=== PATIENT | male | born 1980 | race Hispanic/Latino ===

== ENCOUNTER 2023-12-20 20:38 | Observation (INO) | payer SELFPAY ==
[2023-12-20] MEDS ORDERED: ASPIRIN 81 MG CHEWABLE TABLET ONE (20:53)
[2023-12-20 20:58] LABS: Absolute Eosinophils 0.7 K/uL (0-0.5); Absolute Lymphocytes (CBC) 2.6 K/uL (0.7-4.9); Absolute Monocytes 0.8 K/uL (0.1-1.3); Absolute Neutrophil 3.6 K/uL (1.8-8.0); Basophils % 0.4 % (0-1.3); Eosinophils % 9.2 % (0-4.4); Hematocrit 45.4 % (39.6-49.0); Hemoglobin 15.5 g/dL (13.6-17.9); Lymphocytes % 34.3 % (15.3-44.8); MCH 31.9 pg (27.0-35.0); MCHC 34.1 g/dL (32.0-36.0); MCV 93.5 fL (80-100); Monocytes % 9.9 % (3.3-12.3); Neutrophils % 46.2 % (41.7-73.7); Nucleated Red Blood Cells % 0.1 % (0-0); Platelets 232 thou/uL (152-406); RBC Red Blood Cell Count 4.86 M/uL (4.33-5.43); Red Cell Distribution Width 13.1 % (12.1-15.2)
[2023-12-20 21:11] LABS: D-Dimer < 215 FEUng/mL (<500); PT Prothrombin Time 11.5 SECONDS (9.5-12.5); Protime INR 1.05
[2023-12-20 21:21] LABS: Anion Gap 9.7 mEq/L (5.0-15.0); BUN Blood Urea Nitrogen 18 mg/dL (7-18); Bicarbonate 28 mEq/L (21-32); Glomerular Filtration Rate 65 ml/min (=/>90); Glucose Level 140 mg/dL (74-106); Potassium 3.7 mEq/L (3.5-5.1); Sodium Level 139 mEq/L (136-145)
[2023-12-20 21:22] LABS: ALT/SGPT 28 U/L (16-61); AST/SGOT 16 U/L (15-37); Albumin 3.9 g/dL (3.4-5.0); Albumin/Globulin Ratio 1.1 (1.1-1.8); Alkaline Phosphatase 83 U/L (45-117); Bilirubin Direct 0.2 mg/dL (0-0.2); Bilirubin Indirect, Calculated 0.8 mg/dL (0.2-0.8); Globulin 3.6 g/dL (2.3-3.5); Protein, Total 7.5 g/dL (6.4-8.2)
[2023-12-20 21:24] LABS: NT PRO-BNP < 5 pg/mL (<125); Troponin High Sensitivity < 3.0 pg/mL (<58.9)
--- NOTE | 2023-12-20 22:10 | RAD REPORT ---
EXAM DESCRIPTION: RAD - Chest Single View - 12/20/2023 10:03 pm CLINICAL HISTORY: CHEST PAIN Chest pain. COMPARISON: CHEST SINGLE VIEW dated 02/14/2015; CHEST PA AND LAT 2 VIEW dated 08/22/2012 FINDINGS: Portable technique limits examination quality. The lungs are grossly clear. The heart is normal in size. No displaced fractures. IMPRESSION: No acute intrathoracic process suspected.
--- NOTE | 2023-12-20 23:30 | ER ---
Nurse's Notes [facility] Name: Terry Ely Age: 43 yrs Sex: Male : 1980 Arrival Date: 12/20/2023 Time: 20:38 Bed 6 Private MD: Diagnosis: Chest pain, unspecified Presentation: 12/19 20:48 Chief complaint: Patient states: Pt c/o sudden onset of non-reproducible left side tl4 chest pressure that radiates into left arm since yesterday. Pt has history of AL within past 2-3 years. Pt also c/o nausea and SOB. Coronavirus screen: At this time, the client does not indicate any symptoms associated with coronavirus-19. Ebola Screen: No symptoms or risks identified at this time. Initial Sepsis Screen: Does the patient meet any 2 criteria? No. Patient's initial sepsis screen is negative. Does the patient have a suspected source of infection? No. Patient's initial sepsis screen is negative. Risk Assessment: Do you want to hurt yourself or someone else? Patient reports no desire to harm self or others. Onset of symptoms was December 19, 2023. 20:48 Method Of Arrival: Ambulatory tl4 20:48 Acuity: CHICHO 2 tl4 Triage Assessment: 20:51 General: Appears uncomfortable, Behavior is calm, cooperative. Pain: Complains of pain tl4 in chest. EENT: No signs and/or symptoms were reported regarding the EENT system. Neuro: Level of Consciousness is awake, alert, obeys commands, Oriented to person, place, time, situation. Cardiovascular: Reports chest pain, nausea, shortness of breath, Capillary refill < 3 seconds Patient's skin is warm and dry. Respiratory: Airway is patent Respiratory effort is even, unlabored, Respiratory pattern is regular, symmetrical. GI: No signs and/or symptoms were reported involving the gastrointestinal system. : No signs and/or symptoms were reported regarding the genitourinary system. Derm: No signs and/or symptoms reported regarding the dermatologic system. Historical: - Allergies: 20:50 No Known Allergies; tl4 - Home Meds: 20:50 None [Active]; tl4 - PMHx: 20:50 Myocardial infarction; tl4 - PSHx: 20:50 None; tl4 - Immunization history:: Adult Immunizations unknown. - Infectious Disease History:: Denies. - Social history:: Smoking status: Patient denies any tobacco usage or history of. Screenin:54 [facility] ED Fall Risk Assessment (Adult) History of falling in the last 3 months, km8 including since admission No falls in past 3 months (0 pts) Confusion or Disorientation No (0 pts) Intoxicated or Sedated No (0 pts) Impaired Gait No (0 pts) Mobility Assist Device Used No (0 pt) Altered Elimination No (0 pt) Score/Fall Risk Level 0 - 2 = Low Risk Oriented to surroundings, Maintained a safe environment, Educated pt \T\ family on fall prevention, incl call for assistance when getting out of bed, Assessed \T\ reinforced patient's understanding of fall precautions. Abuse screen: Denies threats or abuse. Denies injuries from another. Nutritional screening: No deficits noted. Tuberculosis screening: No symptoms or risk factors identified. Assessment: 20:54 General: Appears in no apparent distress. Behavior is calm, cooperative, appropriate km8 for age. Pain: Complains of pain in anterior aspect of left upper chest Pain radiates to left arm Pain currently is 8 out of 10 on a pain scale. Quality of pain is described as aching, sharp, Pain began 1 day ago. Is continuous. Neuro: Level of Consciousness is awake, alert, obeys commands, Oriented to person, place, time, situation. Cardiovascular: Reports chest pain, Denies shortness of breath, Patient's skin is warm and dry. Rhythm is sinus rhythm Chest pain is described as mild, quality is sharp, is located in left anterior chest wall radiates to left arm(s) began 1 day ago episodes are continuous is aggravated by movement. Respiratory: Airway is patent Respiratory effort is even, unlabored, Respiratory pattern is regular, symmetrical. GI: No signs and/or symptoms were reported involving the gastrointestinal system. : No signs and/or symptoms were reported regarding the genitourinary system. EENT: No signs and/or symptoms were reported regarding the EENT system. Derm: No signs and/or symptoms reported regarding the dermatologic system. Skin is intact, is healthy with good turgor, Skin is dry, Skin is pink, warm \T\ dry. normal, Skin temperature is warm. Musculoskeletal: No signs and/or symptoms reported regarding the musculoskeletal system. Range of motion: intact in all extremities. 22:10 Reassessment: Patient appears in no apparent distress at this time. No changes from km8 previously documented assessment. Patient and/or family updated on plan of care and expected duration. Pain level reassessed. Patient is alert, oriented x 3, equal unlabored respirations, skin warm/dry/pink. 23:10 Reassessment: Patient appears in no apparent distress at this time. No changes from km8 previously documented assessment. Patient and/or family updated on plan of care and expected duration. Pain level reassessed. Patient is alert, oriented x 3, equal unlabored respirations, skin warm/dry/pink. 12/20 00:06 Reassessment: Patient appears in no apparent distress at this time. No changes from km8 previously documented assessment. Patient and/or family updated on plan of care and expected duration. Pain level reassessed. Patient is alert, oriented x 3, equal unlabored respirations, skin warm/dry/pink. report faxed to 2nd floor. Vital Signs: 12/19 20:48 BP 161 / 96; Pulse 93; Resp 22; Temp 98.5(O); Pulse Ox 100% on R/A; Weight 76.11 kg; tl4 Height 5 ft. 4 in. ; Pain 8/10; 21:15 BP 140 / 98; Pulse 90; Resp 16; Pulse Ox 97% on R/A; km8 22:00 BP 126 / 90; Pulse 83; Resp 18; Pulse Ox 96% on R/A; km8 23:00 BP 125 / 93; Pulse 79; Resp 16; Pulse Ox 98% on R/A; km8 23:30 BP 135 / 97; Pulse 83; Resp 16; Pulse Ox 99% on R/A; km8 20:48 Body Mass Index 28.80 (76.11 kg, 162.56 cm) tl4 20:48 Pain Scale: Adult tl4 [place] Coma Score: 20:54 Eye Response: spontaneous(4). Motor Response: obeys commands(6). Verbal Response: km8 oriented(5). Total: 15. ED Course: 20:40 Patient arrived in ED. ra3 20:42 [facility] Ortega [facility]C [facility] kb 20:42 Dwight Bowens MD is Attending Physician. kb 20:44 Gracie Guillen, RN is Primary Nurse. km8 20:50 Triage completed. tl4 20:51 Basic Metabolic Panel Sent. 8 20:51 CBC with Diff Sent. 8 20:51 D-Dimer Sent. 8 20:51 LFT's Sent. 8 20:51 Magnesium Sent. 8 20:51 NT PRO-BNP Sent. 8 20:51 PT-INR Sent. 8 20:51 Troponin HS Sent. 8 20:51 Initial lab(s) drawn, by me, sent to lab. EKG done, by ED staff, reviewed by Johanna MONTIEL. Inserted saline lock: 20 gauge in right antecubital area, using aseptic technique. Blood collected. 20:51 Arm band placed on right wrist. tl4 20:54 O2 via room air. km8 20:54 Patient has correct armband on for positive identification. Placed in gown. Bed in low km8 position. Call light in reach. Side rails up X2. monitor and storage bin tender on. Pulse ox on. NIBP on. Warm blanket given. 22:05 XRAY Chest (1 view) In Process Unspecified. EDMS 23:05 Troponin High Sensitivity Sent. km8 23:29 Prince Yusuf MD is Hospitalizing Provider. kb 12/20 00:06 No provider procedures requiring assistance completed. km8 00:06 Patient admitted, IV remains in place. km8 00:06 Provided Education on: admission process. km8 Administered Medications: 12/19 20:54 Drug: Aspirin PO Chewable Tablet 324 mg PO once; 81 mg tablets x 4 Route: PO; km8 23:05 Follow up: Response: No adverse reaction 8 Medication: 20:54 VIS not applicable for this client. km8 Outcome: 23:29 Decision to Hospitalize by Provider. kb 12/20 00:53 Admitted to Med/surg accompanied by tech, via wheelchair, with chart, tm6 Condition: stable Instructed on the need for admit, 00:53 Patient left the ED. tm6 Signatures: Dispatcher [employer] EDJohanna Holman, TIANA GONZALEZP-Gracie Valiente, RN RN 8 Jesus Gross RN RN tm6 [employer], [place] RN RN 4 Toya Craft ra3
--- NOTE | 2023-12-20 23:30 | EDPHYS ---
Physician Documentation [facility] Name: Terry Ely Age: 43 yrs Sex: Male : 1980 Arrival Date: 12/20/2023 Time: 20:38 Bed 6 Private MD: ED Physician Dwight Bowens HPI: 12/19 23:36 This 43 yrs old Male presents to ER via Ambulatory with complaints of Chest kb Pressure - Shakiness and left shoulder pain. 23:36 Patient is a 43-year-old male with a history of IN who presents for left-sided chest kb pain that radiates to left arm, shortness of breath, nausea, dizziness that started yesterday. Symptoms worse with exertion. Reports father of IN when he was in his 30s.. Historical: - Allergies: 20:50 No Known Allergies; tl4 - Home Meds: 20:50 None [Active]; tl4 - PMHx: 20:50 Myocardial infarction; tl4 - PSHx: 20:50 None; tl4 - Immunization history:: Adult Immunizations unknown. - Infectious Disease History:: Denies. - Social history:: Smoking status: Patient denies any tobacco usage or history of. ROS: 23:35 Constitutional: As per HPI kb Exam: 21:09 Constitutional: This is a well developed, well nourished patient who is awake, alert, kb and in no acute distress. Head/Face: Normocephalic, atraumatic. ENT: Moist Mucous membranes Cardiovascular: Regular rate Respiratory: Respirations even and unlabored. No increased work of breathing. Talking in full sentences Abdomen/GI: Soft, non-tender. No distention Skin: Warm, dry with normal turgor. Normal color. MS/ Extremity: Pulses equal, no cyanosis. Neurovascular intact. Full, normal range of motion. Neuro: Awake and alert, GCS 15, oriented to person, place, time, and situation. Moves all extremities. Normal gait. 21:09 ECG was reviewed by the Attending Physician. Vital Signs: 20:48 BP 161 / 96; Pulse 93; Resp 22; Temp 98.5(O); Pulse Ox 100% on R/A; Weight 76.11 kg; tl4 Height 5 ft. 4 in. ; Pain 8/10; 21:15 BP 140 / 98; Pulse 90; Resp 16; Pulse Ox 97% on R/A; km8 22:00 BP 126 / 90; Pulse 83; Resp 18; Pulse Ox 96% on R/A; km8 23:00 BP 125 / 93; Pulse 79; Resp 16; Pulse Ox 98% on R/A; km8 23:30 BP 135 / 97; Pulse 83; Resp 16; Pulse Ox 99% on R/A; km8 20:48 Body Mass Index 28.80 (76.11 kg, 162.56 cm) tl4 20:48 Pain Scale: Adult tl4 [place] Coma Score: 20:54 Eye Response: spontaneous(4). Motor Response: obeys commands(6). Verbal Response: km8 oriented(5). Total: 15. MDM: 20:43 Patient medically screened. kb 23:36 Data reviewed: vital signs, nurses notes. kb 23:37 Differential diagnosis: abnormal EKG, acute myocardial infarction, coronary artery kb disease. The patient was given aspirin in the Emergency Department. Consideration of Admission/Observation Patient was admitted/placed on observation. Escalation of care including admission/observation considered. Management of patient was discussed with the following: Hospitalist: Dr Yusuf accepts pt for admission. Historians other than the Patient: Spouse/Significant Other: . Counseling: I had a detailed discussion with the patient and/or guardian regarding the historical points, exam findings, and any diagnostic results supporting the discharge/admit diagnosis, lab results, radiology results, the need for further work-up and treatment in the hospital. 12/20 00:49 ED course: HEART score 5. kb 12/19 20:45 Order name: Basic Metabolic Panel; Complete Time: 21:29 kb 12/19 20:45 Order name: CBC with Diff; Complete Time: 21:04 kb 12/19 20:45 Order name: D-Dimer; Complete Time: 21:13 kb 12/19 20:45 Order name: LFT's; Complete Time: 21:29 kb 12/19 20:45 Order name: Magnesium; Complete Time: 21:29 kb 12/19 20:45 Order name: NT PRO-BNP; Complete Time: 21:29 kb 12/19 20:45 Order name: PT-INR; Complete Time: 21:13 kb 12/19 20:45 Order name: Troponin HS; Complete Time: 21:29 kb 12/19 22:48 Order name: Troponin High Sensitivity; Complete Time: 23:29 kb 12/19 20:45 Order name: XRAY Chest (1 view); Complete Time: 22:11 kb 12/19 20:45 Order name: Cardiac monitoring; Complete Time: 20:51 kb 12/19 20:45 Order name: EKG - Nurse/Tech; Complete Time: 20:51 kb 12/19 20:45 Order name: IV Saline Lock; Complete Time: 20:51 kb 12/19 20:45 Order name: Labs collected and sent; Complete Time: 20:51 kb 12/19 20:45 Order name: O2 Per Protocol; Complete Time: 20:51 kb 12/19 20:45 Order name: O2 Sat Monitoring; Complete Time: 20:51 kb EC/08 21:09 Rate is 84 beats/min. Rhythm is regular. QRS [place] is Normal. MS interval is normal at kb 154 msec. QRS interval is normal at 98 msec. QT interval is normal at 423 msec. Administered Medications: 20:54 Drug: Aspirin PO Chewable Tablet 324 mg PO once; 81 mg tablets x 4 Route: PO; km8 23:05 Follow up: Response: No adverse reaction km8 Disposition: 12/20 03:24 Co-signature as Attending Physician, Dwight Bowens MD I agree with the assessment sp4 and plan of care. I reviewed the patient's care provided by the Advanced Practice Provider and agree with the diagnosis and treatment plan. Disposition Summary: 12/20/23 23:29 Hospitalization Ordered Notes: Hospitalization Status: Observation Provider: Prince linus Yusuf Location: Telemetry/MedSurg (observation) kb Condition: Stable kb Problem: new kb Symptoms: are unchanged kb Bed/Room Type: Standard Room Assignment: 228(12/20/23 23:52) wm Diagnosis - Chest pain, unspecified kb Forms: - Medication Reconciliation Form kb - SBAR form kb - Leadership Thank You Letter kb Signatures: Dispatcher [employer] Johanna Tavares FNP-C FNP-Cassie Escobar Sergey, MD MD sp4 Gracie Guillen RN RN km8 [facility] RN tl4 Corrections: (The following items were deleted from the chart) 12/19 20:46 20:46 BASIC METABOLIC PANEL+C.LAB.BRZ ordered. EDMS EDMS 20:46 20:46 CBC+H.LAB.BRZ ordered. EDMS EDMS 20:46 20:46 D-DIMER+COAG.LAB.BRZ ordered. EDMS EDMS 20:46 20:46 HEPATIC FUNCTION+C.LAB.BRZ ordered. EDMS EDMS 20:46 20:46 MAGNESIUM+C.LAB.BRZ ordered. EDMS EDMS 20:46 20:46 PROBNP+C.LAB.BRZ ordered. EDMS EDMS 20:46 20:46 PROTIME (+INR)+COAG.LAB.BRZ ordered. EDMS EDMS 20:46 20:46 Troponin High Sensitivity+C.LAB.BRZ ordered. EDMS EDMS 23:52 23:29 kb wm
--- NOTE | 2023-12-21 00:14 | P.HP ---
Certification for Inpatient Patient admitted to: Observation With expected LOS: <2 Midnights Practitioner: I am a practitioner with admitting privileges, knowledge of patient current condition, hospital course, and medical plan of care. Services: Services provided to patient in accordance with Admission requirements found in Title 42 Section 412.3 of the Code of Federal Regulations Patient History Date of Service: 12/21/23 Reason for admission: chest pain History of Present Illness: Patient is a 43-year-old Luxembourger-speaking male with a past medical history of coronary disease status post AL as per patient. He is currently not taking any medications. He presents with a acute onset of chest pain which started the evening before admission. Patient works as a arc welder apprentice and he developed sudden onset of chest pain at work. He did not have any shortness of breath or palpitations. He denies any lower extremity swelling. Was able to return home only to for his symptoms to recur the following morning. This is the reason why is in the ER. He had 2 troponins, which were in the negative range. His vital signs are stable. Chest x-ray is unremarkable. An EKG was done with concern for right bundle branch block. Listed above, patient has a personal history of AL. He states that he was hospitalized here approximately 6 years ago. He also has a family history of coronary disease. His father of AL in his 30s. Allergies No Known Drug Allergies Allergy (Unverified 02/19/15 12:51) Unknown Physical Examination - Physical Exam General: In no apparent distress HEENT: Atraumatic, Normocephalic, EOMI Neck: Supple Respiratory: Clear to auscultation bilaterally Cardiovascular: No edema, Regular rate/rhythm Musculoskeletal: No clubbing, No swelling, No contractures, No erythema, No tenderness, No warmth Neurological: Normal speech, Cranial nerves 3-12 intact - Studies Laboratory Data (last 24 hrs) 12/20/23 12/20/23 12/20/23 20:50 20:50 20:50 WBC 7.70 Hgb 15.5 Hct 45.4 Plt Count 232 PT 11.5 INR 1.05 Sodium 139 Potassium 3.7 BUN 18 Creatinine 1.40 H Glucose 140 H Magnesium 2.0 Total Bilirubin 1.0 AST 16 ALT 28 Alkaline Phosphatase 83 Assessment and Plan - Problems (Diagnosis) (1) Chest pain Current Visit: Yes Status: Acute - Plan Assessment Patient is a 43-year-old male with a personal and family history of coronary disease. He is presenting for evaluation of chest pain ongoing for the past 24 hours. His first set of troponins are negative. Chest pain Will admit under observation with telemetry Pulmonary embolism ruled out with negative D-dimers Initiate ACS rule out First troponin negative Follow lipid panel and hemoglobin A1c Follow 2D echo Check urine drug screen He will benefit from a cardiology consult as well given his risk factors JORDAN Baseline Cr of 0.9 He is presenting with a CR of 1.40 Started on IV fluid DVT prophylaxisencourage ambulation DispoHome tomorrow if above workup is negative, and after cardiology clearance - Advance Directives Does patient have a Living Will: No Does patient have a Durable POA for Healthcare: No
[2023-12-21 01:22] VITALS: O2SAT 99
[2023-12-21] MEDS: NA CHLORIDE 0.9% 1,000 ML IV SCH (01:27)
[2023-12-21 03:07] VITALS: BMI 27.6
[2023-12-21] MEDS: ACETAMINOPHEN 325 MG TABLET PO PRN (08:16)
[2023-12-21] MEDS: ASPIRIN EC 81 MG TAB PO SCH (08:16)
[2023-12-21] MEDS: METOPROLOL TAR 25 MG TAB PO SCH (08:16)
[2023-12-21 08:27] LABS: Specific Gravity 1.024 (1.005-1.030); Sqamous Epithelial None Seen /HPF (None Seen); Urine Bacteria None Seen /HPF (<20); Urine Bilirubin NEGATIVE (Negative); Urine Blood Negative (Negative); Urine Clarity Clear (Clear); Urine Color Light-Yellow (Yellow); Urine Culture Reflex Order NOT NEEDED; Urine Glucose NEGATIVE (Negative); Urine Ketones NEGATIVE (Negative); Urine Micro Reflex YN NO BILL MICROSCOPIC; Urine Mucus Slight /HPF (None Seen); Urine Nitrite NEGATIVE (Negative); Urine Protein NEGATIVE (Negative); Urine RBC <5 /HPF (None Seen); Urine Urobilinogen Normal (Normal); Urine WBC <5 /HPF (<5); Urine pH 6.5 (5.0-7.0)
[2023-12-21 09:25] LABS: Barbiturates NEGATIVE (NEGATIVE); Benzodiazepines NEGATIVE (NEGATIVE); Cocaine NEGATIVE (NEGATIVE); METHAMPHETAM NEGATIVE (NEGATIVE); Methadone NEGATIVE (NEGATIVE); Opiates NEGATIVE (NEGATIVE); Phencyclidine NEGATIVE (NEGATIVE); THC Cannibis NEGATIVE (NEGATIVE)
--- NOTE | 2023-12-21 10:12 | P.PN ---
Date of Service: 12/21/23 Subjective: tentative plan for stress test today ROS: 10 point ROS as noted above, otherwise negative Physical Exam: GEN: Alert, oriented, NAD HEENT: Normal conjunctiva, sclera anicteric, CV: Regular rate and rhythm, no edema Pulm: Nonlabored respirations on room air, clear bilaterally ABD: soft, nontender, nondistended Neuro: Normal speech, normal affect Problem List: Chest pain hx Prior [place] JORDAN, resolved Hyperlipidemia Chest pain hx Prior [place] CXR negative for acute findings troponins negative x3. Monitor on telemetry EKG in ED concerning for right bundle branch block Cardiology consulted NPO for tentative nuclear stress test (12/20) urinalysis unremarkable, tox screen negative continue metoprolol, aspirin 81 mg denies any home meds JORDAN, resolved creatinine 1.40 -> 1.04 (12/20) continue to monitor renal function continue IV fluids improved Hypertension continue metoprolol 12.5 mg BID Hyperlipidemia Start statin VTE: Code: Full Dispo: Home, 1 day Pending stress test / cardiac recs
--- NOTE | 2023-12-21 11:33 | P.CNS ---
Date of Consult: 12/21/23 Chief Complaint: chest pain History of Present Illness: Patient with PMH of family history of premature CAD presented with chest pain pressure in nature radiate to left arm, no other cardiac symptoms. Allergies No Known Drug Allergies Allergy (Verified 12/21/23 00:50) Unknown Home Medications: NK [No Home Meds] 12/21/23 - Past Medical/Surgical History -: heart attack - Family History Father Medical History: Heart disease Mother Medical History: Cancer - Social History Alcohol use: No CD- Drugs: No Caffeine use: Yes Place of Residence: Home Review of Systems 10-point ROS is otherwise unremarkable Physical Examination Temp Pulse Resp BP Pulse Ox 97.7 F 66 16 133/86 99 12/21/23 08:00 12/21/23 08:00 12/21/23 08:00 12/21/23 08:00 12/21/23 08:00 General: Alert, Oriented x3 HEENT: Atraumatic Neck: Supple Respiratory: Clear to auscultation bilaterally Cardiovascular: No edema Laboratory Data (last 24 hrs) 12/20/23 12/20/23 12/20/23 20:50 20:50 20:50 WBC 7.70 Hgb 15.5 Hct 45.4 Plt Count 232 PT 11.5 INR 1.05 Sodium 139 Potassium 3.7 BUN 18 Creatinine 1.40 H Glucose 140 H Magnesium 2.0 Total Bilirubin 1.0 AST 16 ALT 28 Alkaline Phosphatase 83 - Problems (1) HTN (hypertension) Current Visit: Yes Status: Acute Plan: continue lopressor 12.5 mg po BID (2) HLD (hyperlipidemia) Current Visit: Yes Status: Acute Plan: Continue lipitor 40 mg daily (3) Chest pain Current Visit: Yes Status: Acute Plan: NPO for stress test.
--- NOTE | 2023-12-21 13:01 | ECHO ---
HEIGHT: 5 ft 4 in WEIGHT: 161 lb 1.6 oz DATE OF STUDY: 12/21/[address]: Prince Fausto Yusuf MD 2-DIMENSIONAL: YES M.MODE: YES DOPPLER: YES COLOR FLOW: YES TDS: PORTABLE: YES DEFINITY: BUBBLE STUDY: DIAGNOSIS: CHEST PAIN CARDIAC HISTORY: CATHERIZATION: SURGERY: PROSTHETIC VALVE: PACEMAKER: MEASUREMENTS (cm) DIASTOLIC (NORMALS) SYSTOLIC (NORMALS) IVSd 0.8 (0.6-1.2) LA Diam 3.3 (1.9-4.0) LVEF 64% LVIDd 4.8 (3.5-5.7) LVIDs 3.1 (2.0-3.5) %FS 35% LVPWd 0.8 (0.6-1.2) Ao Diam 2.8 (2.0-3.7) 2 DIMENSIONAL ASSESSMENT: RIGHT ATRIUM: NORMAL LEFT ATRIUM: NORMAL RIGHT VENTRICLE: NORMAL LEFT VENTRICLE: NORMAL TRICUSPID VALVE: TRACE TRICUSPID REGURGITATION MITRAL VALVE: NORMAL PULMONIC VALVE: TRACE PULMONIC INSUFFICIENCY AORTIC VALVE: NORMAL PERICARDIAL EFFUSION: NONE AORTIC ROOT: NORMAL LEFT VENTRICULAR WALL MOTION: NORMAL DOPPLER/COLOR FLOW: NORMAL COMMENTS: 1. NORMAL LEFT VENTRICULAR SYSTOLIC FUNCTION, EJECTION FRACTION 60-65%, NORMAL WALL MOTION 2. NORMAL DIASTOLIC DYSFUNCTION TECHNOLOGIST: COURTNEY ALVARENGA
[2023-12-21] MEDS ORDERED: REGADENOSON 0.4 MG/5 ML SYR IV ONE (13:38)
--- NOTE | 2023-12-21 14:00 | EKG ---
Test Date: 2023-12-20 Test Time: 20:51:11 Ship'S Master: RV MEASUREMENT RESULTS: Intervals: Rate: 84 DC: 154 QRSD: 98 QT: 358 QTc: 423 [place]: P: 51 DC: 154 QRS: 92 T: 22 INTERPRETIVE STATEMENTS: Normal sinus rhythm Rightward axis Incomplete right bundle branch block Cannot rule out Anterior infarct, age undetermined Abnormal ECG No previous ECG available for comparison Electronically Signed On 12-21-23 13:59:19 CDT by Bryan Guillen
--- NOTE | 2023-12-21 14:18 | TREADPHA ---
DX: CHEST PAIN Date of Study: 12/21/2023 Ht: 5' 4 " Wt: 161 lb 1.6 oz Consulting Physician: PATRICIA MEDICATIONS: TYLENOL, ASPIRIN, LIPITOR, LOPRESSOR HISTORY: 43 YEAR OLD MALE WITH HISTORY OF HIGH CHOLESTEROL. NON SMOKER, NON DRINKER, NO DRUG USE PHYSICIAL EXAMINATION: RESTING B.P.: 135/78 RESTING H.R.: 74 RESTING EKG: NORMAL SINUS RHYTHM, WITHIN NORMAL LIMITS PROTOCOL: PHARMACOLOGIC EXERCISE TIME: 3:30 B.P. AT PEAK STRESS: 143/71 IMPRESSION: LEXISCAN INJECTED. CARDIOLITE INJECTED - SEE NUCLEAR MEDICINE REPORT. NO CHEST PAIN, NO ARRHYTHMIAS. NO VENTRICULAR TACHYCARDIA, NO SUPRAVENTRICULAR TACHYCARDIA. NO PREMATURE ATRIAL COMPLEXES, NO PREMATURE VENTRICULAR COMPLEXES. NO ELECTROCARDIOGRAM CHANGES WITH STRESS.
--- NOTE | 2023-12-21 16:31 | RAD REPORT ---
EXAM DESCRIPTION: NM - Rest Stress Cardiac Imaging - 12/21/2023 2:09 pm CLINICAL HISTORY: chest pain COMPARISON: No comparisons TECHNIQUE: The patient was administered approximately 10.6 mCi of Tc 99m Sestamibi prior to resting SPECT imaging of the heart. The patient was then administered approximately 30.8 mCi of Tc 99m Sestam ibi following exercise or pharmacologic stress. Multiplanar SPECT images were reviewed. FINDINGS: No stress induced ischemic defect is seen to suggest stress induced ischemia. No fixed def ect is seen to suggest hibernating myocardium or scarred myocardium. The end diastolic volume is 86 ml, the end systolic volume is 31 ml, and the ejection fraction is 65 %. IMPRESSION: No evidence of stress induced myocardial ischemia. Normal left ventricular ejection fraction, 65%.
[2023-12-21 17:16] VITALS: BP 138/82; TEMP 97.9
[2023-12-21] MEDS: ATORVASTATIN 40 MG TAB PO SCH (20:38)
--- NOTE | 2023-12-22 06:38 | P.DS ---
Admission Date: 12/20/23 Discharge Date: 12/21/23 Disposition: ROUTINE DISCHARGE Discharge Condition: GOOD Reason for Admission: chest pain Consultations: Cardiology - Dr. Barton / Dr. Guillen Brief History of Present Illness: 43yo M, PMH: coronary disease status post NV as per patient. Patient presents with a acute onset of chest pain which started the evening before admission. He is currently not taking any medications. 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 He did not have any shortness of breath or palpitations. He denies any lower extremity swelling. Was able to return home only to for his symptoms to recur the following morning. This is the reason why is in the ER. He had 2 troponins, which were in the negative range. His vital signs are stable. Chest x-ray is unremarkable. An EKG was done with concern for right bundle branch block. Listed above, patient has a personal history of NV. He states that he was hospitalized here approximately 6 years ago. He also has a family history of coronary disease. His father of NV in his 30s. Hospital Course: Problem List: Chest pain hx Prior NV JORDAN, resolved Hyperlipidemia Physician Discharge Instructions: Patient presented with chest pain. Troponins were negative. Urinalysis was unremarkable. Tox screen was negative. EKG done in ED concerning for possible right bundle branch block. Patient was seen and evaluated by Dr. Barton, cardiology, who recommended nuclear stress test to further evaluate given patient's prior history. Echocardiogram was normal. Stress test was normal. No indication to warrant further work up / intervention. Patient was feeling better, chest pain improved, and was deemed stable for discharge home. He was noted to have elevated cholesterol and blood pressure. He was treated with metoprolol and atorvastatin, and these are continued on discharge to lower risk of cardiac event - new prescriptions. Patient had mild Acute Kidney Injury on admission with serum creatinine on 1.40 and quickly improved with IV fluids and resolved < 24 hours. Creatinine on d ischarge: 1.04 Total Cholesterol: 203; LDL: 125, HDL: 33 Medications: metoprolol 12.5mg twice daily atorvastatin 40mg bedtime Follow up: Primary Care Physician 3-5 days Cardiology in ~2-4 weeks Please call to schedule / confirm appointments Physical Exam: GEN: Alert, oriented, NAD HEENT: Normal conjunctiva, sclera anicteric CV: Regular rate and rhythm, no edema Pulm: Nonlabored respirations on room air, clear bilaterally ABD: soft, nontender, nondistended Neuro: Normal speech, normal affect Vital Signs/Physical Exam: Temp Pulse Resp BP Pulse Ox 97.9 F 72 16 138/82 100 12/21/23 16:00 12/21/23 16:00 12/21/23 16:00 12/21/23 16:00 12/21/23 16:00 Laboratory Data at Discharge: WBC 7.70 thou/uL (4.3-10.9) 12/20/23 20:50 Hgb 15.5 g/dL (13.6-17.9) 12/20/23 20:50 Hct 45.4 % (39.6-49.0) 12/20/23 20:50 Plt Count 232 thou/uL (152-406) 12/20/23 20:50 PT 11.5 SECONDS (9.5-12.5) 12/20/23 20:50 INR 1.05 12/20/23 20:50 Sodium 138 mEq/L (136-145) 12/21/23 06:52 Potassium 4.0 mEq/L (3.5-5.1) 12/21/23 06:52 BUN 16 mg/dL (7-18) 12/21/23 06:52 Creatinine 1.04 mg/dL (0.70-1.30) 12/21/23 06:52 Glucose 100 mg/dL (74-106) 12/21/23 06:52 Magnesium 2.0 mg/dL (1.6-2.4) 12/20/23 20:50 Total Bilirubin 1.0 mg/dL (0.2-1.0) 12/20/23 20:50 AST 16 U/L (15-37) 12/20/23 20:50 ALT 28 U/L (16-61) 12/20/23 20:50 Alkaline Phosphatase 83 U/L (45-117) 12/20/23 20:50 Triglycerides 226 mg/dL (<150) H 12/21/23 01:19 Cholesterol 203 mg/dL (<200) H 12/21/23 01:19 HDL Cholesterol 33 mg/dL (40-60) L 12/21/23 01:19 Cholesterol/HDL Ratio 6.15 12/21/23 01:19 Home Medications: Atorvastatin Calcium [Lipitor] 40 mg PO BEDTIME 30 Days #30 tab 12/21/23 Metoprolol Tartrate [Lopressor*] 12.5 mg PO BID 30 Days #30 tab 12/21/23 New Medications: Atorvastatin Calcium [Lipitor] 40 mg PO BEDTIME 30 Days #30 tab Metoprolol Tartrate [Lopressor*] 12.5 mg PO BID 30 Days #30 tab Followup: Dennys Barton MD [ACTIVE - CAN ADMIT] - (2-4 weeks) NONE,NONE [Primary Care Provider] - Time spent managing pt's care (in minutes): 45
== END 2023-12-21 20:45 | disposition home or self-care (01) ==
LOC: ER 20:38 → ERHOLD 23:44 → 2ND 12-21 00:05
PROVIDERS: ADMIT Internal Medicine; ATTEND Hospitalist
DX: R07.9 Chest pain, unspecified (principal); I25.10 Atherosclerotic heart disease of native coronary artery without angina pectoris; I25.2 Old myocardial infarction; N17.9 Acute kidney failure, unspecified; I10 Essential (primary) hypertension; E78.5 Hyperlipidemia, unspecified
CPT/HCPCS: 36415; 71045; 78452; 80048; 80061; 80076; 80307; 81001; 83036; 83735; 83880; 84484; 85025; 85379; 85610; 93005; 93017; 93306; 99285; A9500; G0378; J2785; J7030